=== PATIENT | female | born 1990 | race Caucasian/White ===

== ENCOUNTER 2019-07-22 19:15 | Outpatient (CLI) | payer OTHER, SELFPAY ==
[2019-07-22 19:43] LABS: Influenza Control Valid (Valid)
== END 2019-07-22 19:16 | disposition home or self-care (01) ==
PROVIDERS: PCP Internal Medicine; Visit Provider Internal Medicine
DX: R50.9 Fever, unspecified (principal); R05 Cough
CPT/HCPCS: 87804